=== PATIENT | female | born 1965 | race Caucasian/White ===

== ENCOUNTER 2022-01-23 23:24 | Emergency (ER) | payer MEDICAID ==
[~2022-01-23] VITALS: Ht 172.7 cm; Wt 72.6 kg
--- NOTE | 2022-01-23 23:30 | NUR ---
bibra 89 & [employer] from home for ETOH. per EMS patient was jumping from one balcony to another one. PATIENT ALERT AND ORIENTED IN BED 14 ON MONITOR AND IN RESTRAINTS. PT AWAITING MD THOMPSON.
--- NOTE | 2022-01-24 00:14 | NUR ---
ER ENROBER TENDER AT BEDSIDE
--- NOTE | 2022-01-24 00:21 | NUR ---
URINE COLLECTED AND SENT TO LAB
[2022-01-24 00:54] LABS: BILIRUBIN,URINE SMALL (NEGATIVE); COLOR,URINE YELLOW (YELLOW); LEUKOCYTE ESTERASE ,URINE NEGATIVE (NEGATIVE); NITRITE, URINE NEGATIVE (NEGATIVE); PH,URINE 5.5 (5.0-8.0); PROTEIN,URINE 30 mg/dl (NEGATIVE); UGLUCOSE NEGATIVE (NEGATIVE); UROBILINOGEN,URINE 0.2 EU/dL (0.2)
[2022-01-24 01:00] LABS: BASOPHILS % (AUTO) 0.2 % (0.0-2.0); EOSINOPHILS % (AUTO) 0.2 % (0.0-6.0); HEMATOCRIT 41 % (33-45); HEMOGLOBIN 14.3 g/dL (11.5-14.8); LYMPHOCYTES # (AUTO) 1.9 K/uL (0.8-4.8); LYMPHOCYTES % (AUTO) 13.6 % (20.0-44.0); MEAN CORPUSCULAR HGB CONC 35 g/dl (31.0-36.0); MEAN CORPUSCULAR VOLUME 91 fL (82-100); MONOCYTES # (AUTO) 1.5 K/uL (0.1-1.30); MONOCYTES % (AUTO) 10.6 % (2.0-12.0); NEUTROPHILS # (AUTO) 10.5 K/uL (1.8-8.9); NEUTROPHILS % (AUTO) 75.4 % (43.0-81.0); PLATELET COUNT (AUTO) 223 K/uL (150-450); RED BLOOD CELL COUNT(AUTO) 4.52 MIL/uL (4.0-5.2)
[2022-01-24 01:16] LABS: ALANINE AMINOTRANSFERASE 22 U/L (12-78); ALBUMIN 4.3 g/dL (3.4-5.0); ALCOHOL, BLOOD < 3 mg/dL (0-0); ALKALINE PHOSPHATASE 57 U/L (46-116); ASPARTATE AMINOTRANSFERASE 17 U/L (15-37); BILIRUBIN,DIRECT 0.2 mg/dL (0.0-0.2); BILIRUBIN,TOTAL 0.7 mg/dL (0.2-1.0); CALCIUM, SERUM 9.5 mg/dL (8.5-10.1); CARBON DIOXIDE 22 mmol/L (21-32); CHLORIDE 102 mmol/L (98-107); CREATININE 1.3 mg/dL (0.6-1.3); GLUCOSE 128 mg/dL (74-106); POTASSIUM 3.7 mmol/L (3.5-5.1); SODIUM SERUM 137 mmol/L (136-145); UREA NITROGEN, BLOOD 20 mg/dL (7-18)
[2022-01-24 01:17] LABS: ACETAMINOPHEN 0 ug/ml (10-30)
[2022-01-24] MEDS ORDERED: OLANZAPINE 10 MG VIAL IM ONE ×2 (03:30→03:44)
--- NOTE | 2022-01-24 04:49 | NUR ---
PT TAKEN TO CT VIA JAN
[2022-01-24] MEDS ORDERED: IV NS 0.9% 1,000 ML BAG IV ONE (06:00)
--- NOTE | 2022-01-24 06:17 | NUR ---
RAC #18G S/L; PATENT AND INTACT.
[2022-01-24 08:24] LABS: BACTERIA,URINE Few /HPF (None Seen); RBC,URINE NONE SEEN /HPF (0-2); WBC,URINE 0-2 /HPF (0-3)
--- NOTE | 2022-01-24 10:25 | NUR ---
SS Consult requested for Drug abuse and bizarre/ unsafe behavior. SW met with pt. at beside x2 separate occasions and pt. is drowsy. Pt. unabel to answer questions at this time. SW will follow up at a later time.
--- NOTE | 2022-01-24 11:12 | NUR ---
MEDARDO ([facility]) [phone]
--- NOTE | 2022-01-24 14:03 | NUR ---
CAITLIN met with the pt. at bedside. the pt. is alert & oriented x 2. Pt. is very agitatted, aggressive with irritable mood and affect. The pt. states she wants to leave. Pt. is guarded and refusing to answer most interview questions. Pt. stated she is homeless and stated "I have somewhere to go" and refused to provide information to SW. Pt. stated that the address on the facesheet is only her mailing address. SW offered to call someone to pick her up and pt. refused.Pt. denies SI and stated "I am not sure" when asked is she is experiencing homicidal ideation. Per EMR, pt. has a son, Dwight [phone]. SW offered patient homeless resources and pt. refused resources and refused to sign homeless waiver. CAITLIN discussed with who requested consult by Crisis Team. CAITLIN called and notified RD MECHANICAL ENGINEER Loren Ember [phone] who stated she would be here soon to see patient. Resources offered include: Year-round shelters: [place] [address] [place], [place] [phone] ; [facility] [place] [address] [place] [address]; [place] [facility] Cfofrgc2573 [facility]. [facility] [phone] Hygiene: [facility] [facility]: [address] [place] ; [facility] [address] [facility] ; [facility] [address] [facility] . Food Resources: [facility] [facility]- [address] [place]; Meet Each Need with Dignity ([facility]) [address] [facility] [place]; [facility] [address] [facility] [[email or web address]]; [facility] [address] [facility]. Mental Health resources provided: [facility] [address] [place] [address] ; [facility] [address] [facility] [address], [place] [address] ; [place] [facility] [address] [place] [address] ; [facility] [address] [place], [place] [phone] Healthcare Clinics: [facility] [address] [facility], [address] [place]. [place] ; [facility] [address] [place] [address]; [facility] [address] [facility] [phone]) [phone] Counseling--Outpatient [facility] [place] [address], [place] [address] (Specializes in in-depth psychotherapy for emotional distress: anxiety, depression, interpersonal conflicts, life transitions, childhood abuse) [facility] [address] [place] [address] (Assist with solving problem marital difficulties, separation & divorce, aging parents, & grief, chronic & terminal illness) [facility] [address] [place] [address] (Deal with loss & grief, anxiety, marital difficulties) Homebound/Mental Health Services [address] [facility], [address] [place] [address] (Provide in-home mental services to people who are incapable of leaving their homes) [facility] Elderly Senior Service/Resource Center [address] [place] [address] [facility] [address] [facility] [facility] [address] [address] PSYCHIATRIC OUTPATIENT SERVICES [facility] Partial Hospitalization and Intensive Outpatient Program (Managed Care and [place] Only)[address]. [facility] [phone] [facility] Partial Hospitalization and Outpatient [id number] [facility] access [facility]. [address] [place], [place] [phone] ROMÁN ACOSTA [facility] [id number] [facility]. [address] [place], [place] [phone] [facility] Partial Hospitalization and Outpatient [id number] Pita Medel, [phone] Substance Abuse resources provided included: [facility] Substance Abuse Self-Helpline ([facility]) ; [facility] [address] [facility]. [place] [address] ; [facility] [place] [address] [facility] [address] ; [facility] [address] [facility] [phone] ; [facility] [address] [address] ; [facility] 4940 [facility] [address] ; [facility] [address] [facility] [phone] ; [facility] Substance Abuse Helpline([facility] ; [facility] ; [facility]; [facility] [place]; [facility] [place]; [facility]; [place] [facility]; [place]; [facility] [place] [facility]; [facility] [place] [place]; Alcoholics Anonymous -SFV; Xf-Ashm-Jmitdij ; Marijuana Anonymous -[facility]; Narcotics Anonymous www.na.org;
--- NOTE | 2022-01-24 14:21 | NUR ---
RADHA CRISIS TEAM, ETA 15-30 MIN.
[2022-01-24] MEDS ORDERED: LORAZEPAM INJ 2 MG/ML VIAL IM ONE (15:00)
[2022-01-24] MEDS ORDERED: LORAZEPAM INJ 2 MG/ML VIAL ONE (16:18)
--- NOTE | 2022-01-24 16:37 | NUR ---
PT AAOX4, VSS. DENIES CP, SOB, DIZZINESS, N/V AT THIS TIME. PT REFUSED ATIVAN IM. WILL CONT TO MONITOR.
--- NOTE | 2022-01-24 17:05 | NUR ---
NAKUL () TEL [phone] OR [phone]
--- NOTE | 2022-01-24 17:11 | NUR ---
[place] POWERHOUSE MECHANIC HELPER CALLED FOR RE-EVAL PER DR COSTELLO
--- NOTE | 2022-01-24 19:45 | NUR ---
crisis team at bedside
--- NOTE | 2022-01-24 20:07 | NUR ---
IV removed. Catheter intact and site benign. Pressure and 4x4 applied to site. No bleeding noted. Patient discharged to home in stable condition. Written and verbal after care instructions given. Patient verbalizes understanding of instruction. PT ambulatory with a steady gait
--- NOTE | 2022-01-24 20:08 | NUR ---
PT SEEN AND CLEARED BY MARY CRISIS TARGET WORKER. DR COSTELLO NOTIFIED. PT OK TO BE DISCHARGED. Patient discharged to home in stable condition. Written and verbal after care instructions given. Patient verbalizes understanding of instruction.Patient is awake and alert to self, day, and place. PT ambulatory with a steady gait. [facility] HOME PROVIDED FOR PT.
[2022-01-24 20:47] VITALS: BP 138/76
== END 2022-01-24 20:15 | disposition home or self-care (01) ==
LOC: ER 23:26
DX: R46.1 Bizarre personal appearance (principal); Z90.2 Acquired absence of lung [part of]; Z87.19 Personal history of other diseases of the digestive system; Z88.8 Allergy status to other drugs, medicaments and biological substances
CPT/HCPCS: 36415; 70450; 80048; 80076; 80143; 80307; 80320; 81001; 85025; 93005; 96360; 96372; 99285; J2060; J3490; J7030; G0480